=== PATIENT | female | born 1935 | race Caucasian/White ===

== ENCOUNTER 2018-10-07 08:13 | Day surgery (SDC) | payer MEDICARE, OTHER ==
[~2018-10-07] VITALS: Ht 154.9 cm; Wt 75.0 kg
[~2018-10-07 08:13] MED LIST: AMLO5TAB4 PO; BENA10TA4 PO; MAXIDE PO; METF-849 PO; SIMV20TA2 PO; SULF500T PO
[2018-10-07 08:47] VITALS: Ht 154.9 cm; Wt 75.0 kg
--- NOTE | 2018-10-07 10:15 | PREAC ---
Date/Time of Note Date/Time of Note DATE: 10/07/18 TIME: 10:14 Anesthesia Eval and Record Evaluation Time Pre-Procedure Interview DATE: 10/07/18 TIME: 10:14 Age 82 Sex female NPO: 8 hrs Preoperative diagnosis positive ocullt blood Planned procedure colonoscopy Past Medical History Past Medical History: Includes Cardio: HTN, Dyslipidemia Endo: Diabetes Surgery & Anesthesia Issues No known issue Meds Anticoagulation: No Beta Oracio within 24 hr: No Reason Beta Oracio not given: Pt. not on B-Oracio Reported Medications Simvastatin (Simvastatin) 20 Mg Tablet, 20 MG PO DAILY, TAB 05/05/14 Sulfasalazine (Azulfidine) 500 Mg Tablet, 500 MG PO BID 05/05/14 Metformin* (Glucophage*) 500 Mg Tab, 500 MG PO BID, TAB 05/05/14 Amlodipine Besylate* (Norvasc*) 5 Mg Tablet, 5 MG PO DAILY, TAB 05/05/14 Discontinued Reported Medications Triamterene/Hctz (Maxzide (75-50)*) 1 Tab Tablet, 1 TAB PO twice weekly, TAB 05/05/14 Benazepril Hcl* (Benazepril Hcl*) 10 Mg Tablet, 10 MG PO DAILY, TAB 05/05/14 Meds reviewed: Yes Allergies Coded Allergies: No Known Allergy (Unverified , 10/07/18) Allergies Reviewed: Yes Labs/Studies Labs Reviewed: Reviewed by anesthesiologist test: N/A Studies: ECG (n/a) Pre-procedure Exam Airway: Adequate mouth opening Mallampati: Mallampati I Teeth: Normal Lung: Normal Heart: Normal ASA Physical Status ASA physical status: 2 Emergency: None Planned Anesthetic General/MAC: MAC Planned Pain Management Parenteral pain med Pre-operative Attestations Prior to commencing anesthesia and surgery, the patient was re-evaluated, there was verification of: *The patient's identity *The results of appropriate recent lab work and preoperative vital signs *The above evaluation not changing prior to induction *Anesthetic plan, risk benefits, alternative and complications discussed with patient/family; questions answered; patient/family understands, accepts and wishes to proceed. LARISA RIVERA MD Oct 07, 2018 10:15
[2018-10-07 10:20] VITALS: BP 157/96; PULSE 72; RESP 28
[2018-10-07 11:22] VITALS: BP 150/78; RESP 21
--- NOTE | 2018-10-07 16:43 | PAC ---
Date/Time of Note Date/Time of Note DATE: 10/07/18 TIME: 16:43 Post-Anesthesia Notes Post-Anesthesia Note Last documented vital signs Vital Signs Date Temp Pulse Resp B/P (MAP) Pulse Ox O2 O2 Flow FiO2 Time Delivery Rate 10/07/18 98 74 21 150/78 94 11:22 (102) 10/07/18 98.1 72 Room Air 10:20 Activity: WNL Respiratory function: WNL Cardiovascular function: WNL Mental status: Baseline Pain reasonably controlled: Yes Hydration appropriate: Yes Nausea/Vomiting absent: No LARISA RIVERA MD Oct 07, 2018 16:43
== END 2018-10-07 13:33 | disposition home or self-care (01) ==
LOC: GIL 08:13
PROVIDERS: ATTEND Internal Medicine Gastroenterology
DX: K92.1 Melena (principal); D12.5 Benign neoplasm of sigmoid colon; K51.90 Ulcerative colitis, unspecified, without complications; E11.9 Type 2 diabetes mellitus without complications; I10 Essential (primary) hypertension; E78.5 Hyperlipidemia, unspecified; Z79.84 Long term (current) use of oral hypoglycemic drugs
CPT/HCPCS: 82962; 88305